=== PATIENT | male | born 1955 | race African-American/Black ===

== ENCOUNTER 2017-08-14 22:20 | Inpatient (IN) | payer SELFPAY ==
[~2017-08-14] VITALS: Ht 170.2 cm; Wt 54.4 kg
[2017-08-14] MEDS ORDERED: PANTOPRAZOLE SODIUM 40 MG/VIAL IV STA (22:56)
[2017-08-14] MEDS ORDERED: OCTREOTIDE ACETATE 50 MCG/ML 1ML IV ONE (23:00)
[2017-08-14 23:45] LABS: CHLORIDE 107 mEq/L (98-107)
[2017-08-14 23:50] LABS: BASOPHILS % 0.7 % (0.0-2.0); EOSINOPHILS % 1.5 % (0.0-5.0); HEMATOCRIT. 35.8 % (42.0-52.0); HEMOGLOBIN. 11.8 g/dL (14.0-18.0); LYMPHOCYTES % 36.3 % (20.0-50.0); MEAN CORPUSCULAR HEMOGLOBIN 26.9 pg (28.0-32.0); MEAN CORPUSCULAR VOLUME 81.5 fL (80.0-94.0); NEUTROPHILS % 50.5 % (40.0-76.0); PLATELET 305 x1000/uL (130-400); RED BLOOD CELL COUNT 4.39 mill/uL (4.7-6.1); RED CELL DISTRIBUTION WIDTH 17.2 % (11.6-14.6)
[2017-08-14 23:51] LABS: ETHANOL BLOOD < 10 mg/dL
[2017-08-14 23:56] LABS: INR 1.1; PROTHROMBIN TIME 11.4 sec (9.4-11.6)
[2017-08-15 02:55] LABS: CLARITY URINE CLOUDY (CLEAR); COLOR URINE YELLOW (YELLOW); KETONES URINE NEGATIVE (NEGATIVE); LEUKOCYTE ESTERASE URINE NEGATIVE (NEGATIVE); NITRITE URINE NEGATIVE (NEGATIVE); OCCULT BLOOD URINE NEGATIVE (NEGATIVE); PH URINE 7.5 (4.5-8.0); PROTEIN URINE NEGATIVE (NEGATIVE); SPECIFIC GRAVITY URINE 1.017 (1.005-1.030); UROBILINOGEN URINE 0.2 E.U./dL (0.2-1.0)
[2017-08-15 08:00] VITALS: BP 130/79
[2017-08-15] MEDS ORDERED: MAGNESIUM/ALUMINUM HYDROXIDE/SIMETHICONE 30ML UDC PO PRN (09:00)
[2017-08-15] MEDS ORDERED: GUAIFENESIN 200MG/10ML SUGAR FREE UDC PO PRN (09:00)
[2017-08-15] MEDS ORDERED: CLONIDINE 0.1MG TABLET PO PRN (09:00)
[2017-08-15] MEDS ORDERED: ACETAMINOPHEN 325MG TABLET PO PRN (09:00)
[2017-08-15] MEDS ORDERED: ZOLPIDEM TARTRATE 5MG TABLET PO PRN (09:00)
[2017-08-15] MEDS ORDERED: NITROGLYCERIN 0.4MG TABLET SL SL PRN (09:00)
[2017-08-15] MEDS ORDERED: LORAZEPAM 0.5MG TABLET PO PRN (09:00)
[2017-08-15] MEDS ORDERED: DIPHENHYDRAMINE 50MG/ML VIAL IV PRN (09:00)
[2017-08-15] MEDS ORDERED: IPRATROPIUM/ALBUTEROL 0.5-3(2.5)MG/3ML NEB INH PRN (09:00)
[2017-08-15] MEDS ORDERED: NA PHOS,M-B/NA PHOS,DI-BA ENEMA 118ML PR PRN (09:00)
[2017-08-15] MEDS ORDERED: DOCUSATE SODIUM 100MG CAPSULE PO PRN (09:00)
[2017-08-15 09:55] LABS: EOSINOPHILS % 1.6 % (0.0-5.0); HEMATOCRIT. 36.8 % (42.0-52.0); HEMOGLOBIN. 12.1 g/dL (14.0-18.0); LYMPHOCYTES % 41.5 % (20.0-50.0); MEAN PLATELET VOLUME 6.8 fl (7.4-10.4); MONOCYTES % 9.5 % (2.0-8.0); NEUTROPHILS % 46.4 % (40.0-76.0); PLATELET 273 x1000/uL (130-400); RED BLOOD CELL COUNT 4.49 mill/uL (4.7-6.1); RED CELL DISTRIBUTION WIDTH 17.1 % (11.6-14.6)
[2017-08-15 10:02] LABS: CHLORIDE 107 mEq/L (98-107)
[2017-08-15 10:07] LABS: AMYLASE 155 IU/L (25-115)
[2017-08-15 11:28] VITALS: BP 130/79
[2017-08-15] MEDS: PANTOPRAZOLE SODIUM 40 MG/VIAL IV SCH (11:55)
[2017-08-15] MEDS: KETOROLAC 15MG/ML VIAL IV PRN ×2 (11:55→20:51)
[2017-08-15] MEDS: SUCRALFATE 1 G/10 ML UDC PO SCH ×3 (11:55→21:17)
[2017-08-15 12:00] VITALS: BP 137/93
[2017-08-15] MEDS ORDERED: ONDANSETRON 4MG ODT PO PRN (15:30)
[2017-08-15 16:00] VITALS: BP 123/77
[2017-08-15] MEDS: SODIUM CHLORIDE 0.9% INJ 3ML FLUSH IVF SCH ×2 (18:20→21:17)
[2017-08-15 20:00] VITALS: BP 123/75
[2017-08-16] VITALS: BP 115/78
[2017-08-16 04:00] VITALS: BP 125/70
[2017-08-16] MEDS: SUCRALFATE 1 G/10 ML UDC PO SCH ×2 (06:09→11:45)
[2017-08-16] MEDS: SODIUM CHLORIDE 0.9% INJ 3ML FLUSH IVF SCH (06:09)
[2017-08-16 08:00] VITALS: BP 119/70
[2017-08-16] MEDS: PANTOPRAZOLE SODIUM 40 MG/VIAL IV SCH (08:10)
[2017-08-16] MEDS: KETOROLAC 15MG/ML VIAL IV PRN (10:17)
[2017-08-16 11:40] LABS: *AMPHETAMINES SCREEN URINE NEGATIVE (NEGATIVE); *BARBITURATES SCREEN URINE NEGATIVE (NEGATIVE); *BENZODIAZEPINES SCREEN URINE NEGATIVE (NEGATIVE); *COCAINE SCREEN URINE NEGATIVE (NEGATIVE)
[2017-08-16 11:41] LABS: CANNABINOID URINE SCREEN PRESUMTIVE POSITIVE (NEGATIVE); METHADONE URINE SCREEN NEGATIVE (NEGATIVE); OPIATES URINE SCREEN NEGATIVE (NEGATIVE)
[2017-08-16 12:00] VITALS: BP 143/83
[2017-08-16 12:08] LABS: PHENCYCLIDINE URINE SCREEN NEGATIVE (NEGATIVE)
[2017-08-16 14:34] VITALS: BP 143/83
== END 2017-08-16 16:35 | disposition home or self-care (01) | DRG 241 ==
LOC: ER 22:32 → 5WST 08-15 05:04 → EDBEDREQTM 08-15 05:05 → EDBEDREQ 08-15 05:05 → ENRESERV 08-15 06:48
PROVIDERS: ADMIT Internal Medicine; ATTEND Internal Medicine
DX: K29.71 Gastritis, unspecified, with bleeding (principal); K85.90 Acute pancreatitis without necrosis or infection, unspecified; E87.6 Hypokalemia; D64.9 Anemia, unspecified; E78.00 Pure hypercholesterolemia, unspecified; F10.10 Alcohol abuse, uncomplicated; F12.10 Cannabis abuse, uncomplicated; F17.200 Nicotine dependence, unspecified, uncomplicated; K21.9 Gastro-esophageal reflux disease without esophagitis; K86.1 Other chronic pancreatitis; Z59.0 Homelessness; Z72.89 Other problems related to lifestyle
CPT/HCPCS: 36415; 71045; 74176; 76705; 80053; 80305; 81003; 82150; 83036; 83690; 83880; 84484; 85025; 85610; 86850; 86900; 93005; 93970; 96374; 96375; 99285; C9113; G0482; J1885; J2354

== ENCOUNTER 2017-12-01 18:26 | Inpatient (IN) | payer SELFPAY ==
[~2017-12-01] VITALS: Ht 170.2 cm; Wt 61.9 kg
[2017-12-01 19:27] LABS: BASOPHILS % 0.3 % (0.0-2.0); EOSINOPHILS % 0.2 % (0.0-5.0); HEMATOCRIT. 40.2 % (42.0-52.0); HEMOGLOBIN. 13.2 g/dL (14.0-18.0); LYMPHOCYTES % 22.1 % (20.0-50.0); MEAN CORPUSCULAR HEMOGLOBIN 26.3 pg (28.0-32.0); MEAN CORPUSCULAR VOLUME 80.1 fL (80.0-94.0); MEAN PLATELET VOLUME 7.2 fl (7.4-10.4); MONOCYTES % 8.7 % (2.0-8.0); NEUTROPHILS % 68.7 % (40.0-76.0); PLATELET 306 x1000/uL (130-400); RED BLOOD CELL COUNT 5.02 mill/uL (4.7-6.1); RED CELL DISTRIBUTION WIDTH 16.6 % (11.6-14.6)
[2017-12-01 19:33] LABS: CHLORIDE 103 mEq/L (98-107)
[2017-12-01] MEDS ORDERED: PANTOPRAZOLE SODIUM 40 MG/VIAL IV NR (19:45)
[2017-12-01 20:02] LABS: ETHANOL BLOOD < 10 mg/dL
[2017-12-01 20:34] LABS: INR 1.1; PROTHROMBIN TIME 10.7 sec (9.1-11.1)
[2017-12-01] MEDS: SODIUM CHLORIDE 0.9% 1,000 ML IV NR ×2 (21:50→23:48)
[2017-12-01 23:30] VITALS: BP 118/78
[2017-12-01] MEDS ORDERED: DOCUSATE SODIUM 100MG CAPSULE PO PRN (23:45)
[2017-12-01] MEDS ORDERED: GUAIFENESIN 200MG/10ML SUGAR FREE UDC PO PRN (23:45)
[2017-12-01] MEDS ORDERED: NA PHOS,M-B/NA PHOS,DI-BA ENEMA 118ML PR PRN (23:45)
[2017-12-01] MEDS ORDERED: IPRATROPIUM/ALBUTEROL 0.5-3(2.5)MG/3ML NEB INH PRN (23:45)
[2017-12-01] MEDS ORDERED: MAGNESIUM/ALUMINUM HYDROXIDE/SIMETHICONE 30ML UDC PO PRN (23:45)
[2017-12-01] MEDS ORDERED: ACETAMINOPHEN 650MG/20.3ML UDC GT PRN (23:45)
[2017-12-01] MEDS ORDERED: ACETAMINOPHEN 325MG TABLET PO PRN (23:45)
[2017-12-01] MEDS ORDERED: ACETAMINOPHEN 650MG SUPP PR PRN (23:45)
[2017-12-01] MEDS ORDERED: CLONIDINE 0.1MG TABLET PO PRN (23:45)
[2017-12-01] MEDS ORDERED: LORAZEPAM 2MG/ML CPJ IV PRN (23:45)
[2017-12-01] MEDS ORDERED: ONDANSETRON HCL 4MG/2ML VIAL IV PRN (23:45)
[2017-12-02] MEDS ORDERED: HYDRALAZINE 20MG/ML VIAL IV PRN
[2017-12-02] MEDS ORDERED: MAGNESIUM HYDROXIDE 400MG/5ML 30ML UDC PO PRN
[2017-12-02 00:34] VITALS: BP 118/76
[2017-12-02 02:03] LABS: CLARITY URINE CLEAR (CLEAR); COLOR URINE YELLOW (YELLOW); KETONES URINE NEGATIVE (NEGATIVE); LEUKOCYTE ESTERASE URINE TRACE (NEGATIVE); NITRITE URINE NEGATIVE (NEGATIVE); OCCULT BLOOD URINE NEGATIVE (NEGATIVE); PROTEIN URINE NEGATIVE (NEGATIVE); SPECIFIC GRAVITY URINE 1.014 (1.005-1.030); UROBILINOGEN URINE 0.2 E.U./dL (0.2-1.0)
[2017-12-02 02:25] LABS: *BARBITURATES SCREEN URINE NEGATIVE (NEGATIVE); *BENZODIAZEPINES SCREEN URINE NEGATIVE (NEGATIVE); *COCAINE SCREEN URINE NEGATIVE (NEGATIVE); METHADONE URINE SCREEN NEGATIVE (NEGATIVE); OPIATES URINE SCREEN NEGATIVE (NEGATIVE)
[2017-12-02 02:26] LABS: *AMPHETAMINES SCREEN URINE NEGATIVE (NEGATIVE); CANNABINOID URINE SCREEN PRESUMTIVE POSITIVE (NEGATIVE); PHENCYCLIDINE URINE SCREEN NEGATIVE (NEGATIVE)
[2017-12-02 04:00] VITALS: BP 114/70
[2017-12-02] MEDS: HYDROCODONE/ACETAMINOPHEN 5/325MG TABLET PO PRN ×2 (04:34→21:54)
[2017-12-02] MEDS: SODIUM CHLORIDE 0.9% INJ 3ML FLUSH IVF SCH ×3 (05:29→22:39)
[2017-12-02] MEDS ORDERED: FAMOTIDINE 20MG/2ML VIAL IV SCH (09:00)
[2017-12-02 09:16] LABS: CREATINE KINASE 277 IU/L (39-308)
[2017-12-02 09:17] LABS: CREATINE KINASE MB FRACTION 4.4 ng/mL (0.5-3.6)
[2017-12-02 10:46] LABS: T4 FREE 1.02 ng/dL (0.76-1.46)
[2017-12-02] MEDS ORDERED: DIPHENHYDRAMINE 50MG/ML VIAL IV PRN (12:30)
[2017-12-02] MEDS ORDERED: CLONIDINE 0.1MG TABLET PO PRN (12:30)
[2017-12-02] MEDS ORDERED: GUAIFENESIN 200MG/10ML SUGAR FREE UDC PO PRN (12:30)
[2017-12-02] MEDS ORDERED: ACETAMINOPHEN 650MG SUPP PR PRN (12:30)
[2017-12-02] MEDS ORDERED: DOCUSATE SODIUM 100MG CAPSULE PO PRN (12:30)
[2017-12-02] MEDS ORDERED: MORPHINE SULFATE 4 MG/ML CPJ (NOT FOR IM USE) IV PRN (12:30)
[2017-12-02] MEDS ORDERED: HYDROCODONE/ACETAMINOPHEN 5/325MG TABLET PO PRN (12:30)
[2017-12-02] MEDS ORDERED: ACETAMINOPHEN 650MG/20.3ML UDC GT PRN (12:30)
[2017-12-02] MEDS ORDERED: MAGNESIUM/ALUMINUM HYDROXIDE/SIMETHICONE 30ML UDC PO PRN ×2 (12:30)
[2017-12-02] MEDS ORDERED: IPRATROPIUM/ALBUTEROL 0.5-3(2.5)MG/3ML NEB INH PRN (12:30)
[2017-12-02] MEDS ORDERED: NA PHOS,M-B/NA PHOS,DI-BA ENEMA 118ML PR PRN (12:30)
[2017-12-02] MEDS ORDERED: ONDANSETRON HCL 4MG/2ML VIAL IV PRN (12:30)
[2017-12-02] MEDS ORDERED: ACETAMINOPHEN 325MG TABLET PO PRN (12:30)
[2017-12-02] MEDS ORDERED: SODIUM CHLORIDE 0.9% INJ 3ML FLUSH IVF SCH (14:00)
[2017-12-02] MEDS: SODIUM CHLORIDE 0.9% 1,000 ML IV SCH (15:27)
[2017-12-02 16:19] LABS: BASOPHILS % 0.2 % (0.0-2.0); EOSINOPHILS % 0.4 % (0.0-5.0); HEMATOCRIT. 35.3 % (42.0-52.0); HEMOGLOBIN. 11.5 g/dL (14.0-18.0); LYMPHOCYTES % 23.1 % (20.0-50.0); MEAN CORPUSCULAR HEMOGLOBIN 26.3 pg (28.0-32.0); MEAN CORPUSCULAR VOLUME 80.8 fL (80.0-94.0); MEAN PLATELET VOLUME 7.3 fl (7.4-10.4); MONOCYTES % 10.2 % (2.0-8.0); NEUTROPHILS % 66.1 % (40.0-76.0); PLATELET 232 x1000/uL (130-400); RED BLOOD CELL COUNT 4.37 mill/uL (4.7-6.1); RED CELL DISTRIBUTION WIDTH 16.3 % (11.6-14.6)
[2017-12-02 16:23] LABS: CHLORIDE 105 mEq/L (98-107)
[2017-12-02 16:32] LABS: CREATINE KINASE 257 IU/L (39-308)
[2017-12-02 16:36] LABS: CREATINE KINASE MB FRACTION 3.2 ng/mL (0.5-3.6)
[2017-12-02] MEDS: PANTOPRAZOLE SODIUM 40 MG/VIAL IV SCH (16:39)
[2017-12-02 16:51] LABS: TOTAL IRON BINDING CAPACITY 273 ug/dL (250-450)
[2017-12-02 16:54] LABS: FOLIC ACID (FOLATE) SERUM 15.4 ng/mL (>5.38)
[2017-12-02] MEDS ORDERED: BISACODYL 10MG SUPP PR PRN (17:45)
[2017-12-02] MEDS ORDERED: BISACODYL 10MG SUPP PR NR (17:45)
[2017-12-02] MEDS ORDERED: NA PHOS,M-B/NA PHOS,DI-BA ENEMA 118ML PR NR (17:45)
[2017-12-02 20:00] VITALS: BP_SYST 121; BP_SYST 140; BP_DIAS 68; BP_DIAS 75
[2017-12-02 23:13] LABS: HEMATOCRIT 36.8 % (42.0-52.0); HEMOGLOBIN 12.1 g/dL (14.0-18.0)
[2017-12-03] VITALS: BP 133/82
[2017-12-03 04:00] VITALS: BP 103/59
[2017-12-03] MEDS: SODIUM CHLORIDE 0.9% 1,000 ML IV SCH ×2 (04:40→15:01)
[2017-12-03] MEDS: SODIUM CHLORIDE 0.9% INJ 3ML FLUSH IVF SCH ×2 (05:29→15:02)
[2017-12-03 07:17] LABS: INR 1.1; PARTIAL THROMBOPLASTIN TIME 26.1 sec (23.4-31.0); PROTHROMBIN TIME 11.1 sec (9.1-11.1)
[2017-12-03 07:44] LABS: BASOPHILS % 0.3 % (0.0-2.0); EOSINOPHILS % 0.8 % (0.0-5.0); HEMATOCRIT. 34.8 % (42.0-52.0); HEMOGLOBIN. 11.4 g/dL (14.0-18.0); LYMPHOCYTES % 37.4 % (20.0-50.0); MEAN CORPUSCULAR HEMOGLOBIN 26.2 pg (28.0-32.0); MEAN CORPUSCULAR VOLUME 79.9 fL (80.0-94.0); MEAN PLATELET VOLUME 7.3 fl (7.4-10.4); MONOCYTES % 10.5 % (2.0-8.0); PLATELET 235 x1000/uL (130-400); RED BLOOD CELL COUNT 4.35 mill/uL (4.7-6.1); RED CELL DISTRIBUTION WIDTH 16.1 % (11.6-14.6)
[2017-12-03 07:47] LABS: CHLORIDE 105 mEq/L (98-107)
[2017-12-03 08:00] VITALS: BP 108/67
[2017-12-03] MEDS: PANTOPRAZOLE SODIUM 40 MG/VIAL IV SCH ×2 (08:48→18:00)
[2017-12-03 12:00] VITALS: BP 118/73
[2017-12-03] MEDS ORDERED: MIDAZOLAM HCL 5 MG/5 ML VIAL ONE ×2 (12:46→12:47)
[2017-12-03] MEDS ORDERED: FENTANYL CITRATE/PF 50MCG/ML 2ML VIAL ONE (12:46)
[2017-12-03] MEDS ORDERED: BACTERIOSTATIC SODIUM CHLORIDE 0.9% 30ML VIAL IJ ONE (13:02)
[2017-12-03] MEDS ORDERED: SIMETHICONE 40 MG/0.6 ML 30ML ONE (13:02)
[2017-12-03] MEDS ORDERED: MIDAZOLAM HCL 2 MG/2 ML VIAL IV ONE (13:35)
[2017-12-03] MEDS ORDERED: DIPHENHYDRAMINE 50MG/ML VIAL IV PRN (13:41)
[2017-12-03] MEDS ORDERED: DIPHENHYDRAMINE 50MG/ML VIAL ONE ×2 (13:41→13:48)
[2017-12-03] MEDS ORDERED: FENTANYL CITRATE/PF 50MCG/ML 2ML VIAL IV PRN (13:42)
[2017-12-03 16:00] VITALS: BP 125/72
[2017-12-03] MEDS ORDERED: FERR236T3 MT (16:32)
[2017-12-03] MEDS ORDERED: PANT40SU MT (16:32)
[2017-12-03] MEDS ORDERED: SUCRALFATE 1 G/10 ML UDC PO SCH (16:45)
[2017-12-03] MEDS ORDERED: METOCLOPRAMIDE HCL 10MG/2ML VIAL IV SCH (16:45)
[2017-12-03 16:46] LABS: HEMATOCRIT 35.2 % (42.0-52.0); HEMOGLOBIN 11.5 g/dL (14.0-18.0)
[2017-12-03 17:12] VITALS: BP 125/70
== END 2017-12-03 18:18 | disposition home or self-care (01) | DRG 253 ==
LOC: ER 18:26 → 5WST 21:25 → EDBEDREQ 21:27 → EDBEDREQTM 21:27 → ENRESERV 21:47
PROVIDERS: ADMIT Family Medicine; ATTEND Family Medicine
PROC: 0DB68ZX Excision of Stomach, Via Natural or Artificial Opening Endoscopic, Diagnostic (ICD-10-PCS; principal; 2017-12-03 11:00)
DX: K92.2 Gastrointestinal hemorrhage, unspecified (principal); K22.10 Ulcer of esophagus without bleeding; D50.9 Iron deficiency anemia, unspecified; E86.0 Dehydration; F12.90 Cannabis use, unspecified, uncomplicated; F10.21 Alcohol dependence, in remission; F17.210 Nicotine dependence, cigarettes, uncomplicated; R07.9 Chest pain, unspecified; K29.70 Gastritis, unspecified, without bleeding; I10 Essential (primary) hypertension; K20.9 Esophagitis, unspecified; K59.00 Constipation, unspecified; M19.90 Unspecified osteoarthritis, unspecified site; K44.9 Diaphragmatic hernia without obstruction or gangrene
CPT/HCPCS: 36415; 71045; 80048; 80053; 80061; 80305; 81003; 82270; 82550; 82553; 82607; 82728; 82746; 83036; 83540; 83550; 83605; 83690; 83880; 84439; 84443; 84484; 85014; 85018; 85025; 85379; 85610; 85730; 88305; 88312; 88313; 93005; 93306; 93970; 96374; 99285; C9113; G0482; J1200; J2250; J2765; J3010; J3490; J7030

== ENCOUNTER 2018-06-16 17:38 | Inpatient (IN) | payer MEDICAID ==
[~2018-06-16] VITALS: Ht 170.2 cm; Wt 71.7 kg
[~2018-06-16 17:38] MED LIST: FERR236T3 MT; PANT40SU MT
[2018-06-17] MEDS ORDERED: VISCOUS LIDOCAINE 2% 15 ML UDC PO STA (06:43)
[2018-06-17] MEDS ORDERED: MAGNESIUM/ALUMINUM HYDROXIDE/SIMETHICONE 30ML UDC PO STA (06:43)
[2018-06-17] MEDS ORDERED: SODIUM CHLORIDE 0.9% 1,000 ML IV ONE (06:43)
[2018-06-17] MEDS ORDERED: FAMOTIDINE 20MG/2ML VIAL IV ONE (06:45)
[2018-06-17 07:13] LABS: CHLORIDE 102 mEq/L (98-107)
[2018-06-17 07:18] LABS: BASOPHILS % 0.4 % (0.0-2.0); EOSINOPHILS % 0.2 % (0.0-5.0); HEMATOCRIT. 42.5 % (42.0-52.0); HEMOGLOBIN. 13.6 g/dL (14.0-18.0); LYMPHOCYTES % 19.8 % (20.0-50.0); MEAN CORPUSCULAR HEMOGLOBIN 25.3 pg (28.0-32.0); MEAN CORPUSCULAR VOLUME 79.2 fL (80.0-94.0); MEAN PLATELET VOLUME 7.5 fl (7.4-10.4); MONOCYTES % 11.8 % (2.0-8.0); NEUTROPHILS % 67.8 % (40.0-76.0); PLATELET 340 x1000/uL (130-400); RED BLOOD CELL COUNT 5.37 mill/uL (4.7-6.1)
[2018-06-17 07:30] LABS: INR 1.1
[2018-06-17] MEDS ORDERED: POTASSIUM CHLORIDE 20MEQ TABLET SR PO ONE (07:45)
[2018-06-17] MEDS ORDERED: MORPHINE SULFATE 4 MG/ML CPJ (NOT FOR IM USE) IV ONE ×2 (09:30→13:15)
[2018-06-17] MEDS ORDERED: CLONIDINE 0.1MG TABLET PO PRN (14:45)
[2018-06-17] MEDS ORDERED: ACETAMINOPHEN 325MG TABLET PO PRN (14:45)
[2018-06-17] MEDS ORDERED: ONDANSETRON HCL 4MG/2ML INJ IV PRN (14:45)
[2018-06-17] MEDS ORDERED: DEXT 5%/0.45% NACL KCL 10MEQ/L 1,000 ML IV SCH (16:00)
[2018-06-17 19:30] LABS: CLARITY URINE CLEAR (CLEAR); COLOR URINE YELLOW (YELLOW); KETONES URINE 1+ (NEGATIVE); LEUKOCYTE ESTERASE URINE NEGATIVE (NEGATIVE); NITRITE URINE NEGATIVE (NEGATIVE); OCCULT BLOOD URINE NEGATIVE (NEGATIVE); PH URINE 6.5 (4.5-8.0); PROTEIN URINE 1+ (NEGATIVE); SPECIFIC GRAVITY URINE 1.031 (1.005-1.030)
[2018-06-18] VITALS: BP 109/70
[2018-06-18 05:58] LABS: HEMATOCRIT. 35.9 % (42.0-52.0); HEMOGLOBIN. 11.5 g/dL (14.0-18.0); MEAN CORPUSCULAR HEMOGLOBIN 25.1 pg (28.0-32.0); MEAN CORPUSCULAR VOLUME 78.6 fL (80.0-94.0); MEAN PLATELET VOLUME 6.6 fl (7.4-10.4); PLATELET 282 x1000/uL (130-400); RED BLOOD CELL COUNT 4.57 mill/uL (4.7-6.1); RED CELL DISTRIBUTION WIDTH 18.6 % (11.6-14.6)
[2018-06-18 06:02] LABS: CHLORIDE 106 mEq/L (98-107)
[2018-06-18 06:39] LABS: PLATELET ESTIMATE NORMAL
[2018-06-18 09:45] VITALS: BP 109/76
[2018-06-18 10:38] VITALS: BP 109/76
[2018-06-18] MEDS ORDERED: FAMO20TA8 MT (11:17)
[2018-06-18] MEDS ORDERED: MULT1CAP64 PO (11:20)
[2018-06-18 12:00] VITALS: BP 111/76
[2018-06-18] MEDS: HYDROMORPHONE HCL/PF 2MG/ML CPJ IV PRN ×2 (12:30→22:23)
[2018-06-18] MEDS: PANTOPRAZOLE SODIUM 40 MG/VIAL IV SCH (12:30)
[2018-06-18 12:57] LABS: HEMATOCRIT 36.3 % (42.0-52.0); HEMOGLOBIN 11.5 g/dL (14.0-18.0); MEAN CORPUSCULAR VOLUME 78.8 fL (80.0-94.0); PLATELET 294 x1000/uL (130-400); RED BLOOD CELL COUNT 4.61 mill/uL (4.7-6.1); RED CELL DISTRIBUTION WIDTH 18.8 % (11.6-14.6)
[2018-06-18 13:00] LABS: CHLORIDE 105 mEq/L (98-107)
[2018-06-18 13:02] LABS: INR 1.1; PARTIAL THROMBOPLASTIN TIME 30.8 sec (23.4-31.0); PROTHROMBIN TIME 11.4 sec (9.1-11.1)
[2018-06-18] MEDS ORDERED: MIDAZOLAM HCL 5 MG/5 ML VIAL IV PRN (16:55)
[2018-06-18] MEDS ORDERED: FENTANYL CITRATE/PF 50MCG/ML 2ML VIAL IV PRN (16:56)
[2018-06-18] MEDS ORDERED: DIPHENHYDRAMINE 50MG/ML VIAL IV PRN (16:59)
[2018-06-18 17:00] VITALS: BP 116/67
[2018-06-18] MEDS ORDERED: MIDAZOLAM HCL 5 MG/5 ML VIAL ONE (17:00)
[2018-06-18] MEDS ORDERED: FENTANYL CITRATE/PF 50MCG/ML 2ML VIAL ONE (17:00)
[2018-06-18] MEDS ORDERED: DIPHENHYDRAMINE 50MG/ML VIAL ONE (17:05)
[2018-06-18] MEDS: DEXT 5%/0.45% NACL KCL 10MEQ/L 1,000 ML IV SCH (19:54)
[2018-06-18 20:00] VITALS: BP 111/75
[2018-06-19] VITALS (9 sets, daily range): BP systolic 109–140; BP diastolic 46–79
[2018-06-19] MEDS: PANTOPRAZOLE SODIUM 40 MG/VIAL IV SCH ×2 (09:44→10:29)
[2018-06-19] MEDS: DEXT 5%/0.45% NACL KCL 10MEQ/L 1,000 ML IV SCH ×2 (10:02→22:26)
[2018-06-19] MEDS: SUCRALFATE 1 G/10 ML UDC PO SCH ×3 (11:44→21:41)
[2018-06-20] VITALS: BP 136/69
[2018-06-20 04:00] VITALS: BP 131/65
[2018-06-20] MEDS: SUCRALFATE 1 G/10 ML UDC PO SCH ×2 (05:55→11:11)
[2018-06-20 08:00] VITALS: BP 108/61
[2018-06-20] MEDS: PANTOPRAZOLE SODIUM 40 MG/VIAL IV SCH (09:17)
[2018-06-20] MEDS: DEXT 5%/0.45% NACL KCL 10MEQ/L 1,000 ML IV SCH (11:11)
[2018-06-20 12:00] VITALS: BP 113/75
[2018-06-20 13:44] VITALS: BP 113/75
== END 2018-06-20 14:15 | disposition home or self-care (01) | DRG 243 ==
LOC: ER 17:38 → 5WST 06-17 09:30 → EDBEDREQ 06-17 09:33 → ENRESERV 06-17 09:46 → CANRESERV 06-17 09:46 → EDBEDREQSVC 06-17 10:52 → ENRESERV 06-18 08:13
PROVIDERS: ADMIT Hospitalist; ATTEND Hospitalist
PROC: 0DB68ZX Excision of Stomach, Via Natural or Artificial Opening Endoscopic, Diagnostic (ICD-10-PCS; principal; 2018-06-18)
DX: K21.0 Gastro-esophageal reflux disease with esophagitis (principal); K31.1 Adult hypertrophic pyloric stenosis; K22.10 Ulcer of esophagus without bleeding; K44.9 Diaphragmatic hernia without obstruction or gangrene; K29.70 Gastritis, unspecified, without bleeding; E87.6 Hypokalemia; I10 Essential (primary) hypertension; N40.0 Benign prostatic hyperplasia without lower urinary tract symptoms; F17.210 Nicotine dependence, cigarettes, uncomplicated; M19.90 Unspecified osteoarthritis, unspecified site; Z59.0 Homelessness; Z82.49 Family history of ischemic heart disease and other diseases of the circulatory system; Z85.01 Personal history of malignant neoplasm of esophagus; Z85.028 Personal history of other malignant neoplasm of stomach
CPT/HCPCS: 36415; 71045; 74176; 80048; 83880; 84484; 85027; 88305; 88312; 88313; 93005; 96361; 96365; 96375; 96376; 99284; 99285; C9113; J1170; J1200; J2250; J2270; J3010; J3490; J7030